=== PATIENT | male | born 1935 | race Caucasian/White ===

== ENCOUNTER 2019-02-10 09:40 | Outpatient (CLI) | payer MEDICARE ==
--- NOTE | 2019-02-10 13:57 | PET ---
Exam: PET CT SKULL TO MID THIGH: COMPARISON: None. HISTORY: Diffuse large B-cell lymphoma. TECHNIQUE: A PET/CT was performed from the skull to the mid thigh after administration of 10.4 millicuries of F- 18 FDG. Evaluation was performed on a [employer] workstation. FINDINGS: NECK: Numerous, enlarged hypermetabolic right-sided lymph nodes of the neck are present, spanning the right level 2A, through the craniocaudal extent of the right neck to the level of the right supraclavicular fossa. Maximum SUV is approximately 30. Discrete size measurement is difficult to dis cern, on the basis of noncontrast attenuation correction nondiagnostic CT imaging. CHEST: Hypermetabolic soft tissue mass of the subpleural aspect of the anteromedial right hemithorax, right retrosternal in location demonstrates SUV maximum of 11 and measures approximately 2 cm in diameter. A small soft tissue nodule of the anterior right upper lobe, superiorly, which measures 8 m m is below threshold for PET resolution, although does reveal increased metabolic activity with SUV of approximately 2.4. ABDOMEN/PELVIS: Numerous hypermetabolic pathologically enlarged lymph nodes of the abdomen are presen t, to the right of midline primarily situated within the mesentery, with maximum SUV of approximately 12. Dominant lymph node is approximately 2.1 cm in diameter, anterior to the right psoa s muscle. SKELETON: No areas of hypermetabolic activity. CT images used for attenuation correction show a bleb within the anterior left lung.. IMPRESSION: 1. Evidence of metabolically active lymphoma of the neck, chest, and abdomen. 2. Deauville score of 5 given activity of the lymph nodes markedly increased compared to liver. Transcribed Date/Time: 02/10/2019 2:03 PM
== END 2019-02-10 09:41 | disposition home or self-care (01) ==
LOC: PET 09:40
PROVIDERS: ATTEND Internal Medicine Hematology & Oncology
DX: C85.91 Non-Hodgkin lymphoma, unspecified, lymph nodes of head, face, and neck (principal); C85.93 Non-Hodgkin lymphoma, unspecified, intra-abdominal lymph nodes; C85.92 Non-Hodgkin lymphoma, unspecified, intrathoracic lymph nodes
CPT/HCPCS: 78815; A9552

== ENCOUNTER 2019-02-22 10:36 | Outpatient (CLI) | payer MEDICARE ==
--- NOTE | 2019-02-22 15:22 | NM ---
MUGA SCAN: INDICATION: Evaluated ejection fraction prior to chemotherapy. FINDINGS: Multiple gated acquisitions of the left ventricle were obtained after administering 29.3 mCi of Techn etium labeled tagged red blood cells. The left ventricle is imaged and visualized in the cine mode. Left ventricular wall motion appears n ormal. Ejection fraction is recorded at 60%. POS: [facility]
== END 2019-02-22 10:37 | disposition home or self-care (01) ==
LOC: NM 10:36
PROVIDERS: ATTEND Internal Medicine Hematology & Oncology
DX: C83.38 Diffuse large B-cell lymphoma, lymph nodes of multiple sites (principal)
CPT/HCPCS: 78472; A9604

== ENCOUNTER 2019-02-24 10:51 | Day surgery (SDC) | payer MEDICARE ==
[2019-02-23 11:39] VITALS: BMI 29.0
--- NOTE | 2019-02-23 13:41 | HP ---
HISTORY OF PRESENT ILLNESS: An 84-year-old male with lymphoma. 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 He is followed by Dr. Salgado. I have been asked to see him regarding placement of a MediPort. Plan is for a low-profile MediPort, IV sedation and local, outpatient. He understands risks and benefits, consents. MEDICATIONS: Thyroid replacement. ALLERGIES: NONE. SOCIAL HISTORY: Tobacco, none. Alcohol, none. PAST SURGICAL HISTORY: Vasectomy. PAST MEDICAL HISTORY: Hypothyroidism treated medically. REVIEW OF SYSTEMS: Ten-point noncontributory. PHYSICAL EXAMINATION: GENERAL: Well-healed scar on right side of the neck from lymph node biopsy, Dr. Maxwell. VITAL SIGNS: Weight 186 pounds, height 67 inches, BMI 29.2, blood pressure 132/81, pulse 71, temperature 97.5 degrees. HEAD, EYES, EARS, NOSE, AND THROAT: Unremarkable. LUNGS: Clear to auscultation. CARDIAC: Rate and rhythm without murmur or gallop. ABDOMEN: Soft and nontender. EXTREMITIES: Unremarkable. ASSESSMENT: Stage IIIA diffuse large B-cell lymphoma. PLAN: MediPort placement. He understands risks and benefits and consents. Job ID: [id number]
[~2019-02-24 10:51] MED LIST: PHENYLEPHRINE-NS 100 MCG/ML 10 ML SYRINGE ONE; PROPOFOL 200 MG/20 ML VIAL ONE
[2019-02-24] MEDS ORDERED: Fentanyl 100 MCG/2 ML VIAL ONE (12:00)
[2019-02-24] MEDS ORDERED: PROPOFOL 40 ML ONE (12:00)
[2019-02-24] MEDS ORDERED: Bupivacaine HCl 0.5%/Epinephrine 1:200,000/PF 30 ml Vial ONE (12:46)
[2019-02-24] MEDS ORDERED: Lidocaine 2% PF 5 ML VIAL ONE (12:46)
--- NOTE | 2019-02-24 14:15 | RAD ---
XR Chest 1 View Portable History: [Post MediPort insertion] Comparison: None. Findings: Port catheter is in place with tip at the inferior SVC. Lungs are hypoinflated with vascula r crowding. Mild atelectasis. No pneumothorax. Impression: Uncomplicated placement of port catheter.
--- NOTE | 2019-02-24 19:55 | OP ---
DATE OF PROCEDURE: 02/24/2019 PREOPERATIVE DIAGNOSIS: Lymphoma, need of antineoplastic chemotherapy access. POSTOPERATIVE DIAGNOSIS: Lymphoma, need of antineoplastic chemotherapy access. PROCEDURE PERFORMED: Right subclavian vein low-profile MediPort, fluoroscopy used. ANESTHESIA: TIVA, local 0.5% Marcaine with epinephrine 30 mL mixed with 2% Xylocaine 10 mL. DESCRIPTION OF PROCEDURE: The patient was taken to the operating room, where under intravenous sedation, the chest was clipped of hair, prepared with ChloraPrep and draped in routine fashion. Local anesthetic mixture was infiltrated into the skin and subcutaneous tissue about the operative site, infraclavicular right chest. Trocar catheter was cannulated in the right subclavian vein and obtained good return of venous blood. J-wire threaded and trocar catheter was removed. Skin site was enlarged sharply, carried down through skin and subcutaneous tissue, creating a pocket for the MediPort using cautery for hemostasis. Dilator and Peel-Away sheath were placed with a J-wire in superior vena cava. Dilator and J-wire were removed. Catheter was placed with the Peel-Away sheath. Peel-Away sheath was removed. Fluoroscopically, the catheter tip was placed in optimal position in the superior vena cava and tailored to length, connected to the MediPort, placed in the subcutaneous pocket and secured with 2 interrupted sutures of 3-0 Prolene. Subcutaneous tissue was approximated with 3-0 Monocryl, skin with subdermal 4-0 Monocryl, and Branford glue applied. Holcomb needle was used to aspirate the MediPort and good return of venous blood was obtained. It was flushed with heparinized saline solution. Fluoroscopy was used to verify the port and catheter to be in optimal position. Job ID: [id number]
== END 2019-02-24 15:10 | disposition home or self-care (01) ==
LOC: SDC 10:51
PROVIDERS: ATTEND Specialist
PROC: 05H533Z Insertion of Infusion Device into Right Subclavian Vein, Percutaneous Approach (ICD-10-PCS; principal; 2019-02-24)
PROC: B5161ZA Fluoroscopy of Right Subclavian Vein using Low Osmolar Contrast, Guidance (ICD-10-PCS; 2019-02-24)
DX: C85.90 Non-Hodgkin lymphoma, unspecified, unspecified site (principal); C83.30 Diffuse large B-cell lymphoma, unspecified site
CPT/HCPCS: 36561; 71045; C1788; J0670; J0690; J1642; J2001; J2704; J3010

== ENCOUNTER 2019-05-15 12:10 | Outpatient (CLI) | payer MEDICARE ==
--- NOTE | 2019-05-15 14:57 | NM ---
Radionucleotide MUGA scan HISTORY: Diffuse large B-cell lymphoma. COMPARISON: : 02/22/2019. Gated planar images show no focal wall motion abnormalities. Left ventricular ejection fraction is ca lculated at 58.5%. (60% on previous exam)
== END 2019-05-15 12:11 | disposition home or self-care (01) ==
LOC: NM 12:10
PROVIDERS: ATTEND Internal Medicine Hematology & Oncology
DX: C83.38 Diffuse large B-cell lymphoma, lymph nodes of multiple sites (principal)
CPT/HCPCS: 78472; A9604